=== PATIENT | female | born 1960 | race Caucasian/White ===

== ENCOUNTER 2021-05-26 16:59 | Emergency (ER) | payer SELFPAY ==
[2021-05-26 17:10] VITALS: BP 160/100; PULSE 84; RESP 20; TEMP 37.1; O2SAT 100
--- NOTE | 2021-05-26 17:16 | ED.GENADULT ---
HPI - General Adult General Chief complaint: Unspecified Stated complaint: Blood Pressure Problem Time Seen by Provider: 05/26/21 17:08 Source: patient, family and RN notes reviewed History of Present Illness HPI narrative: Patient is a 60-year-old female who presents the urgent care with her daughter with complaints of dizziness, tinnitus in the left ear, and not feeling right . Patient states that she lost her 1 month ago and since then has had a lot of increase stress and anxiety. Patient states she took her blood pressure this morning and noticed it was elevated. Patient is waited several hours and states that she does feel better from this morning . Patient is currently denying any chest pain or tingling in the left arm. Denies of any radiation of pain to the jaw or through the back. Denies of any shortness of breath or palpitations. Patient states that she was cold turkey taken off of her levothyroxine which she had been on for years. States that her PCP refused to fill the medication because she was unable to afford blood work after losing insurance. Patient states she has been on same dose of the levothyroxine for years and has had stable blood work. Patient has been off medication for at least 1 month. Patient does appear anxious but otherwise no acute distress noted. Patient and daughter aware of the plan of care. Some parts of this dictation were generated by voice recognition software and may contain typographical and/or grammatical inaccuracies. Related Data Allergies Allergy/AdvReac Type Severity Reaction Status Date / Time No Known Allergies Allergy Verified 05/26/21 17:21 Review of Systems Review of Systems: CONSTITUTIONAL: Denies fever, chills, or sweats. EYES: Denies visual changes, redness, or discharge. ENT: Denies rhinorrhea, congestion, sore throat. Reports of left tinnitus CARDIOVASCULAR: Denies chest pain, palpitations, or edema. Reports of elevated blood pressure RESPIRATORY: Denies cough or dyspnea. GASTROINTESTINAL: Denies abdominal pain, nausea, vomiting, or diarrhea. GENITOURINARY: Denies dysuria or hematuria. SKIN: Denies rash or itching. MUSCULOSKELETAL: Denies back pain, joint pain, or myalgia. NEUROLOGIC: Reports of intermittent dizziness PSYCHIATRIC: Reports of increased stress and anxiety All other systems reviewed are negative, except as documented in HPI. PMFSH Comments At the time of my signature, I reviewed and agree with the nursing past medical, surgical, social, and family history. There is no relevant family history pertinent to the patient complaint. Exam Narrative: GENERAL: This is a well-nourished, well-developed patient. Appears anxious HEAD: normocephalic, atraumatic. EYES: PERRL. Sclera clear/white. Vision is grossly intact. EARS: External ears normal, auditory canals clear and without drainage, TMs normal without perforation. Hearing grossly intact. NOSE: External nose normal with no obvious nasal discharge, nares without redness, no rhinorrhea. THROAT: Mucous membranes moist, posterior pharynx clear. NECK: Neck supple CARDIOVASCULAR: Regular rate and rhythm without murmurs, gallops, or rubs. RESPIRATORY: Clear to auscultation. Breath sounds equal bilaterally. No wheezes, rales, or rhonchi. SKIN: warm, intact with no suspicious lesions or rash, good texture and turgor. NEURO: awake, alert, and oriented to person, place and time. There were no obvious focal neurologic abnormalities. EXTREMITIES: No clubbing, cyanosis, or edema. Course Course Level of Care: Express Care Visit Vital Signs Vital signs: Vital Signs Temperature 98.8 F 05/26/21 17:10 Pulse Rate 84 05/26/21 17:10 Respiratory Rate 20 05/26/21 17:10 Blood Pressure 160/100 H 05/26/21 17:10 Pulse Oximetry 100 05/26/21 17:10 Temperature 98.8 F 05/26/21 17:10 Pulse Rate 84 05/26/21 17:10 Respiratory Rate 20 05/26/21 17:10 Blood Pressure 160/100 H 05/26/21 17:10 Pulse Oxime
--- NOTE | 2021-05-26 17:29 | ECG_ITS ---
Measurements Intervals [place] Rate: 69 P: 70 MS: 134 QRS: 7 QRSD: 94 T: 31 QT: 364 QTc: 392 Interpretive Statements SINUS RHYTHM LOW-VOLTAGE QRS LIMB LEADS BORDERLINE ECG NO PREVIOUS ECG AVAILABLE FOR COMPARISON Electronically Signed On 05-27-2021 16:41:53 CDT by Kings Tan M.D.
[2021-05-26 17:50] VITALS: BP 150/96
== END 2021-05-26 17:50 | disposition left against medical advice (07) ==
PROVIDERS: Emergency Provider Nurse Practitioner Family
DX: E03.9 Hypothyroidism, unspecified (principal); H93.12 Tinnitus, left ear
CPT/HCPCS: 93005; 99213; G0463

== ENCOUNTER 2024-04-04 15:44 | Emergency (ER) | payer SELFPAY ==
[2024-04-04 15:48] VITALS: BP 137/96; PULSE 99; RESP 20; TEMP 36.9; O2SAT 100
--- NOTE | 2024-04-04 16:16 | ED.LOWEXIN ---
HPI - Extremity Injury (Lower) General Chief Complaint: Extremity Injury, Lower Stated Complaint: right foot injury Time Seen by Provider: 04/04/24 16:16 Source: patient Mode of arrival: ambulatory Limitations: no limitations History of Present Illness HPI Narrative: 63-year-old female presented for complaint of right ankle pain following an injury today. She states she rolled her ankle while outside in her yard today. Denies swelling, bruising, deformity, numbness, tingling, weakness. Has not taken anything for pain. Rates pain 5/10 at rest, worse with walking. Related Data Home Medications ?Medication ?Instructions ?Recorded ?Confirmed ?Last Taken ?Type levothyroxine 100 mcg tablet mcg 04/04/24 Unknown History lisinopril 20 mg tablet mg 04/04/24 Unknown History pregabalin 75 mg capsule mg 04/04/24 Unknown History Allergies Allergy/AdvReac Type Severity Reaction Status Date / Time No Known Allergies Allergy Verified 04/04/24 16:02 Review of Systems Review of Systems: per HPI All systems reviewed & are unremarkable except as noted in HPI and below PMFSH Comments At time of signature, I have reviewed and agree with nursing past medical, surgical, social and family history unless otherwise noted. Please see nursing chart for further information. There is no relevant family history pertinent to the presenting complaint Exam Narrative: GENERAL: Well-appearing CHEST: Speaks in full sentences. No respiratory distress. HEART: Regular rate and rhythm. Normal and equal peripheral pulses. EXTREMITIES: right foot has normal strength and sensation, slightly decreased range of motion with flexion/extension/rotation of ankle due to pain with movement. tender with palpation to lateral malleolus and 5th metatarsal. no swelling or ecchymosis, No open wounds, or obvious deformity; pulse palpable and equal bilaterally, skin warm, dry, pink. Capillary refill less than 3 seconds. SKIN: Warm, dry, no rash. NEURO: Alert and oriented x3. PSYCH: Normal mood and affect Course Course Emergency Course: Patient is aware of diagnosis, understands and agrees to treatment plan. Anticipatory guidance given. Patient agrees to follow-up as directed and is aware of reasons to seek care at the emergency department. Portions of this record may have been created with voice recognition software Level of Care: Express Care Visit Vital Signs Vital signs: Vital Signs Temperature 98.4 F 04/04/24 15:48 Pulse Rate 99 04/04/24 15:48 Respiratory Rate 20 04/04/24 15:48 Blood Pressure 137/96 H 04/04/24 15:48 Pulse Oximetry 100 04/04/24 15:48 Oxygen Delivery Room Air 04/04/24 15:48 Temperature 98.4 F 04/04/24 15:48 Pulse Rate 99 04/04/24 15:48 Respiratory Rate 20 04/04/24 15:48 Blood Pressure 137/96 H 04/04/24 15:48 Pulse Oximetry 100 04/04/24 15:48 Oxygen Delivery Room Air 04/04/24 15:48 Reviewed MDM - Extremity Injury (Lower) MDM Narrative Medical decision making narrative: Discussed physical exam findings and x-ray. Lupe wrap applied. Advised supportive measures and signs/symptoms to go to the ER. Pt is appropriate for outpt treatment and f/u. Differential Diagnosis Differential diagnosis: Likely ankle sprain and strain and ankle fracture Imaging Data Radiologist's impression: Patient: Swathi Apple : 1960 MR#: [id number] Age: 63 Acct:[id number] Loc: [facility] ADM Date: 04/04/24Attending Dr: Ordering Physician: Brenna Becker APRN Date of Service: 04/04/24 Procedure(s): XR foot RT min 3V Accession Number(s): [id number] cc: Brenna Becker APRN; Dmitriy, Damion Haas MD~ HISTORY: pain injury COMPARISON: None TECHNIQUE: 3 views of the right foot were performed. FINDINGS: No acute fracture or dislocation is appreciated. No significant degenerative disease is noted. The base of the fifth metatarsal is intact. No calcaneal spur is noted. No significant soft tissue swelling is present. A rounded 2.5 mm density is identified projecting over the soft tissues of the dorsum of the right forefoot. IMPRESSION: No acute fracture or dislocation. Possible radiopaque foreign body projecting over the soft tissues of the dorsum of the right forefoot Discharge Plan Discharge Clinical Impression: Right ankle strain Patient Disposition: Home, Self-Care Condition: Stable Instructions: Ankle Strain (ED) Additional Instructions: Rest and elevate the right leg; bear weight as tolerated Apply ice 15-20 minute intervals several times a day Keep it wrapped with LUPE or use a soft ankle splint Motrin 600mg every 8 hours, alternate with Tylenol 1000mg every 8 hours as needed Follow up with your primary care provider as needed Go to the ER for worsening symptoms or concerns Patient Language: Chinese Prescriptions: No Action lisinopril 20 mg tablet levothyroxine 100 mcg tablet pregabalin 75 mg capsule levothyroxine 112 mcg capsule 112 mcg PO DAILY Qty: 30 0RF Follow-up/Referrals: Dmitriy,Damion Haas MD [Primary Care Provider] -
== END 2024-04-04 16:30 | disposition home or self-care (01) ==
PROVIDERS: Emergency Provider Nurse Practitioner Family; PCP Internal Medicine
DX: S96.911A Strain of unspecified muscle and tendon at ankle and foot level, right foot, initial encounter (principal); Z79.899 Other long term (current) drug therapy; X50.0XXA Overexertion from strenuous movement or load, initial encounter
CPT/HCPCS: 73630; 99213; G0463